=== PATIENT | male | born 1980 | race Hispanic/Latino ===

== ENCOUNTER 2022-07-18 11:32 | Emergency (ER) | payer OTHER | END 2022-07-18 14:20 | disposition home or self-care (01) | LOC: MADERS 11:32 | DX: M10.9 Gout, unspecified (principal); M79.671 Pain in right foot; J45.909 Unspecified asthma, uncomplicated; Z79.899 Other long term (current) drug therapy | CPT/HCPCS: 99283 ==

== ENCOUNTER 2022-09-11 17:45 | Emergency (ER) | payer OTHER ==
[2022-09-11] MEDS ORDERED: Albuterol Sulfate 2.5 mg/0.5 ml Neb ONE (17:54)
[2022-09-11] MEDS ORDERED: Ampicillin/Sulbactam 3 GM VIAL ONE (17:55)
[2022-09-11] MEDS ORDERED: Magnesium 2 GM/50 ML BAG (IN WATER) ONE (17:55)
[2022-09-11] MEDS ORDERED: methylPREDNISolone Sod Succ/PF 125 MG/2 ML VIAL ONE (17:55)
[2022-09-11 18:33] LABS: Band 3 % (5-11); Eosinophils 5 % (0-10); Hemoglobin 14.2 g/dL (14.0-18.0); Lymphocytes 13 % (21-51); MDiff Complete? YES; Mean Corpuscular HGB CONC 32.2 g/dL (32.0-36.0); Mean Corpuscular Hemoglobin 28.8 pg (27.0-31.0); Mean Corpuscular Volume 89.7 fL (78.0-98.0); Mean Platelet Volume 7.4 fL (7.4-10.4); Monocytes 3 % (0-10); Neutrophil 76 % (42-75); Platelet Count 249 thou/uL (130-400); RBC Distribution Width 12.5 % (11.5-14.5); Red Blood Cell (RBC) Count 4.92 mill/uL (4.70-6.10); White Blood Cell (WBC) Count 10.7 thou/uL (4.8-10.8)
[2022-09-11 18:38] LABS: ALT (SGPT) 28 U/L (8-55); AST (SGOT) 19 U/L (5-34); Albumin 4.4 g/dL (3.5-5.0); Alkaline Phosphatase 96 U/L (40-110); Anion Gap 14 mmol/L (10-20); BUN (Urea Nitrogen) 9 mg/dL (8.9-20.6); Bilirubin, Total 0.4 mg/dL (0.2-1.2); Calc. Creatinine Clearance 0 mL/min (70-130); Calcium 9.8 mg/dL (7.8-10.44); Carbon Dioxide 25 mmol/L (22-29); Chloride 103 mmol/L (98-107); Estimated GFR 91; Globulin 3.2 g/dL (2.4-3.5); Glucose 161 mg/dL (70-105); Potassium 3.9 mmol/L (3.5-5.1); Protein, Total 7.6 g/dL (6.0-8.3); Sodium 138 mmol/L (136-145)
[2022-09-11] MEDS ORDERED: Sodium Chloride 0.9% 1,000 ML ONE (20:12)
[2022-09-11] MEDS ORDERED: Albuterol Sulfate 2.5 mg/3 ml Neb ONE ×2 (21:43→21:46)
[2022-09-12 00:09] LABS: Lactic Acid 5.5 mmol/L (0.5-2.2)
== END 2022-09-11 22:34 | disposition short-term general hospital (02) ==
LOC: MADERS 17:45
DX: J45.902 Unspecified asthma with status asthmaticus (principal); Z79.899 Other long term (current) drug therapy
CPT/HCPCS: 36415; 71045; 80053; 83605; 83880; 84484; 85025; 87804; 93005; 94760; 96365; 96375; J0295; J2930; J3475; J7050; J7611